=== PATIENT | female | born 1965 | race Caucasian/White ===

== ENCOUNTER 2019-10-01 09:18 | Outpatient (NON) | payer OTHER, SELFPAY ==
[2019-10-02 14:31] LABS: SARS-CoV-2 RNA PCR Negative
== END 2019-10-01 09:19 ==
PROVIDERS: PCP Family Medicine; Visit Provider Nurse Practitioner
DX: R68.89 Other general symptoms and signs (principal); Z20.828 Contact with and (suspected) exposure to other viral communicable diseases
CPT/HCPCS: 87635; C9803; U0003

== ENCOUNTER → 2021-05-21 09:46 | Outpatient (CLI) | payer OTHER, SELFPAY ==
[2021-05-21 11:57] LABS: Influenza Control Positive
[2021-05-26 22:13] LABS: SARS-CoV-2 RNA PCR Negative
== END ==
PROVIDERS: PCP Family Medicine; Visit Provider Family Medicine
DX: J06.9 Acute upper respiratory infection, unspecified (principal); Z20.822 Contact with and (suspected) exposure to COVID-19
CPT/HCPCS: 87804; C9803; U0003; U0005

== ENCOUNTER 2021-06-27 21:39 | Emergency (ER) | payer OTHER, SELFPAY ==
--- NOTE | ~2021-06-27 | XR_ITS ---
EXAMINATION: XR chest 1V portable INDICATION: Shortness of breath and cough, COVID 19 positive TECHNIQUE: Portable AP chest at 2218 hours COMPARISON: 06/14/2019 FINDINGS: There are minimal patchy airspace opacities throughout the lungs. No pleural effusion or pn eumothorax is identified. The cardiomediastinal silhouette is normal. IMPRESSION: 1. Patchy airspace opacities throughout the lungs, consistent with COVID 19 pneumonia. Reviewed, dictated and finalized at location F. OGRAMMETRIC TECHNICIAN IMPRESSION: 1. Patchy airspace opacities throughout the lungs, consistent with COVID 19 pne umonia.
--- NOTE | ~2021-06-27 | CT_ITS ---
EXAMINATION: CTA chest PE protocol DATE: 06/27/2021 23:22 INDICATION: Dyspnea. Covid-positive. Hypoxemia. TECHNIQUE: Computed tomography angiography (CTA) of the chest was performed with 100 mL Omnipaque-350 intravenous contrast timed to evaluate the pulmonary arteries. Coronal maximum intensity projection 3D-reconstructions were created by the technologist. Automated exposure control and iterative reconst ruction technique were employed. Exam dose: 959.78 mGy-cm total exam DLP. COMPARISON: 06/27/2021 portable AP chest FINDINGS: There is diagnostic contrast enhancement of the pulmonary arteries and no evidence of pulmo nary embolism. No thoracic aortic aneurysm or dissection. No hilar or mediastinal mass lesion or lymphadenopathy. Normal heart size. No pericardial or pleural effusion. There are scattered bilateral patchy primarily peripheral pulmonary groundglass infiltrates involving all lobes, right greater than left, most likely due to bilateral Covid pneumonia. Diffuse hepatic steatosis. Small sliding hiatal hernia. Diffuse idiopathic skeletal hyperostosis of the thoracic spine. No suspicious osteolytic or osteoblas tic lesions are noted. IMPRESSION: No evidence of pulmonary embolism Scattered patchy bilateral pulmonary groundglass infiltrates, right greater than left, likely due to Covid pneumonia Reviewed, dictated and finalized at Location A. Reviewed, dictated and finalized at location A. ONENT ASSEMBLER SUPERVISOR IMPRESSION: No evidence of pulmonary embolism Scattered patchy bilateral pulmonary groundglass infiltrates, right greater sarah n left, likely due to Covid pneumonia
[2021-06-27 21:48] VITALS: BP 176/82; PULSE 90; RESP 18; TEMP 37.7; O2SAT 96
--- NOTE | 2021-06-27 22:10 | ECG_ITS ---
Measurements Intervals [place] Rate: 88 P: 38 LA: 157 QRS: -10 QRSD: 90 T: 46 QT: 376 QTc: 456 Interpretive Statements SINUS RHYTHM CONSIDER INFERIOR INFARCT, AGE INDETERMINATE NONSPECIFIC ST & T-WAVE ABNORMALITY- HIGH LATERAL LEADS BASELINE ARTIFACT- I, II, III, AVR, AVL ABNORMAL ECG Electronically Signed On 06-28-2021 7:08:33 SITE FOREMAN by Alton Billingsley D.O.
--- NOTE | 2021-06-27 22:33 | ED.GENADULT ---
HPI - General Adult General Chief complaint: Shortness of Breath/Dyspnea Stated complaint: covid positive Time Seen by Provider: 06/27/21 22:14 Source: RN notes reviewed History of Present Illness HPI narrative: Patient presents emergency room from home for shortness of breath. Patient states she had a positive COVID test on June 25 with symptoms beginning June 22. She states she just received her first COVID vaccination on the . Patient states that she has had a cough this been nonproductive as well as low-grade fever states her last Tylenol was at approximately 2 PM today patient also states that she has been having nausea and vomiting she denies any chest pain abdominal pain or diarrhea denies any other symptoms at this time states that she had at home pulse ox was reading 82 to 85% today and came in for further evaluation Related Data Home Medications Medication Instructions Recorded Confirmed albuterol sulfate 90 mcg/actuation 2 puff INHALATION Q4-6H PRN gm 06/08/19 05/21/21 aerosol inhaler cholecalciferol (vitamin D3) 25 1,000 unit PO DAILY 06/08/19 05/21/21 mcg (1,000 unit) capsule omega-3 fatty acids 1,000 mg See Rx Instructions PO DAILY 06/08/19 05/21/21 capsule aspirin 81 mg tablet,delayed 81 mg PO DAILY 11/26/19 05/21/21 release escitalopram oxalate 20 mg tablet 20 mg PO DAILY tablet 05/21/21 05/21/21 Allergies Allergy/AdvReac Type Severity Reaction Status Date / Time gemfibrozil Allergy Mild feels Verified 06/27/21 21:50 inchoherant NSAIDS (Non-Steroidal AdvReac Mild contraindicated Verified 06/27/21 21:50 Anti-Inflamma r/t severe GERD Review of Systems Review of Systems: Gen.: Reports fever ENT: Denies congestion Respiratory: Reports shortness of breath and cough CV: Denies chest pain or palpitations GI: Denies abdominal pain reports nausea and vomiting Musculoskeletal: Denies back pain or muscle pain Neuro: Denies numbness, tingling, weakness or focal weakness Skin: Denies rash Except as documented, all other systems reviewed and negative PMFSH Past Medical History Medical History Benign essential HTN Chronic low back pain Depression GERD without esophagitis Hyperlipidemia Lower back pain Recurrent sinusitis (~12/2018) Strain of left Achilles tendon, sequela (~11/2018) Trigger middle finger of left hand Type 2 diabetes mellitus (~11/2019) Vitamin D deficiency Surgical History Surgical History Hx of lumbar discectomy (~1992) Family History Family History Mother Diabetes mellitus Family history of chronic obstructive pulmonary disease Father Family history of chronic obstructive pulmonary disease Other Family history of arthritis Family history of emphysema Family history of mental disorder Social History Social History Social History: . Works from home for [employer] in [place]. Smoking status: Never smoker Smoking end date: 06/06/92 Alcohol intake: current Gender identity (if verbalized by the patient): Female Exam Narrative: APPEARANCE: No acute distress, nontoxic, resting in bed EYES: EOMI HEENT: Normocephalic, atraumatic, OMM RESPIRATORY: No respiratory distress Clear to auscultation bilaterally with no rhonchi wheezing or rales. CARDIOVASCULAR: Regular rate and rhythm without murmurs rubs or gallops. ABDOMINAL: Soft, nontender, nondistended, no rebound or guarding MUSCULOSKELETAl: Moves all extremities. No clubbing, cyanosis or edema. NEURO: Awake and alert. Following commands, speech normal, no focal deficits SKIN:: Warm, dry. No rashes lesions or abrasions PSYCHIATRIC: Normal affect/mood, Course Course Emergency Course: Patient with walking pulse ox in ED oxygen saturations stay
[2021-06-27] MEDS: SODIUM CHLORIDE 0.9% IV 1,000 ML 999 ML IV CONT (22:38)
[2021-06-27] MEDS: ONDANSETRON INJ 4 MG/2 ML VIAL IV PUSH (22:38)
[2021-06-27 22:39] LABS: Basophils Percent Auto 0.4 % (0.2-1.2); Eosinophils Percent Auto 0.2 % (0-4.4); Hematocrit 44.2 % (37.0-47.0); Hemoglobin 14.8 g/dL (12.0-15.0); Immature Granulocyte Absolute 0.02 K/mm3 (0.00-0.031); Immature Granulocyte Percent A 0.4 % (0-0.5); Lymphocytes Absolute Auto 1.22 K/mm3 (0.9-3.2); Mean Corpuscular HGB Conc 33.5 g/dl (32-36); Mean Corpuscular Hemoglobin 29.2 pg (26-34); Mean Corpuscular Volume 87.2 fl (80-100); Mean Platelet Volume 10.3 fl (7.4-10.4); Monocytes Absolute Auto 0.4 K/mm3 (0.1-0.6); Monocytes Percent Auto 7.4 % (2.6-8.5); Neutrophils Absolute Auto 3.1 K/mm3 (1.3-6.7); Neutrophils Percent Auto 65.6 % (45.5-73.1); Platelet Count Result 159 k/mm3 (150-375); Red Blood Count 5.07 M/mm3 (4.2-5.4); Red Cell Distribution Width 13.9 % (11.5-14.5); White Blood Count 4.7 K/mm3 (4.5-10.0)
[2021-06-27 22:49] LABS: Partial Thromboplastin Time 27.9 SECONDS (22.3-36.8)
[2021-06-27 22:51] LABS: D Dimer 0.35 ug/mL (<0.48)
[2021-06-27 22:57] LABS: Alanine Aminotransferase 85 U/L (4-35); Albumin Level 3.9 g/dL (3.5-5.1); Alkaline Phosphatase 130 U/L (38-126); Anion Gap 11 mmol/L (8-16); Aspartate Amino Transferase 83 U/L (14-36); Bilirubin,Total 0.6 mg/dL (0.2-1.3); Blood Urea Nitrogen 9 mg/dL (7-17); CRP 2.2 mg/dL (<1.0); Calcium 8.4 mg/dL (8.4-10.2); Carbon Dioxide 23 mmol/L (22-30); Chloride 99 mmol/L (98-107); Estimated CRCL calculation 139 ml/min; Estimated Glomerular Filt Rate > 60; Glucose 342 mg/dL (65-110); Lactate Dehydrogenase 769 U/L (313-618); Potassium 4.5 mmol/L (3.4-5.0); Sodium 133 mmol/L (137-145)
[2021-06-27 22:59] LABS: Prothrombin Time 13.4 Seconds (11.1-14.7)
[2021-06-27] MEDS: ALBUTEROL SULFATE (*SP) AEROSOL 1 PUFF 2 PUFF INHALATION (23:00)
--- NOTE | 2021-06-27 23:53 | PC.NURSE ---
Patient did ambulate in room with pulse ox, went from 94% to91%. Patient tolerated well. ERP notified.
[2021-06-27 23:54] LABS: Glucose Point of Care 318 mg/dl (65-105)
[2021-06-28 00:18] VITALS: PULSE 99; RESP 20; TEMP 36.3; O2SAT 94
== END 2021-06-28 00:12 | disposition home or self-care (01) ==
PROVIDERS: Emergency Provider Emergency Medicine; PCP Family Medicine
DX: U07.1 COVID-19 (principal); I10 Essential (primary) hypertension; E78.5 Hyperlipidemia, unspecified; E11.9 Type 2 diabetes mellitus without complications; E55.9 Vitamin D deficiency, unspecified; F32.A Depression, unspecified; Z87.891 Personal history of nicotine dependence; Z79.82 Long term (current) use of aspirin; Z79.84 Long term (current) use of oral hypoglycemic drugs; R94.31 Abnormal electrocardiogram [ECG] [EKG]; R91.8 Other nonspecific abnormal finding of lung field
CPT/HCPCS: 36415; 71045; 71275; 80053; 82948; 83615; 85025; 85380; 85610; 85730; 86140; 93005; 96365; 96375; 99284; A9270; J0131; J2405; J7030; Q9967

== ENCOUNTER 2021-11-05 17:45 | Outpatient (CLI) | payer OTHER, SELFPAY ==
--- NOTE | ~2021-11-05 | MM_ITS ---
EXAMINATION: MM screening rena BI w paulino HISTORY: Screening mammogram TECHNIQUE: Craniocaudal and mediolateral oblique 3-D tomosynthesis images were obtained and synthetic 2-D images were generated. CAD analysis was submitted and interpreted. COMPARISON: 09/15/2018 bilateral screening mammogram diagnostic left mammogram 09/23/2015 bilateral screening mammogram BREAST PARENCHYMAL COMPOSITION: The breasts are almost entirely fatty. FINDINGS: There is no evidence of suspicious mass, calcification, or architectural distortion to sugg est malignancy in either breast. There has been no suspicious interval change. IMPRESSION: 1. No mammographic evidence of malignancy. 2. Recommend routine screening mammography in one year. BI-RADS Category 1: Negative Reviewed, dictated and finalized at location A.
== END 2021-11-05 17:46 | disposition home or self-care (01) ==
LOC: ANHIMG 17:48
PROVIDERS: PCP Family Medicine; Visit Provider Nurse Practitioner Family
DX: Z12.31 Encounter for screening mammogram for malignant neoplasm of breast (principal)
CPT/HCPCS: 77063; 77067

== ENCOUNTER 2021-12-11 07:24 | Outpatient (CLI) | payer OTHER, SELFPAY ==
--- NOTE | 2022-01-04 12:02 | WPDSLEEPSTUD ---
Sleep Study Date of Study: 12/11/21 Ordering Provider: Rasheeda Davidson NP Interpreting Physician: Larissa Singh DO Sleep Study Type: Split Polysomnogram Height: 1.57 m Weight: 127.006 kg Body Mass Index: 51.2 Neck Circumference (inches): 16.5 [place]: 10 Reason for Sleep Study Previously diagnosed with sleep apnea. Her CPAP machine broke 4-5 years ago and has been using her 's machine. Sleep History The patient is a 56-year-old female with hypertension, type 2 diabetes, hyperlipidemia, GERD, depression, SOPHIE on CPAP and history of tobacco abuse that had a sleep study ordered by her primary care to get a new CPAP machine. The patient rarely awakens from sleep short of breath. she occasionally awakens at night with heartburn, belching or cough. She frequently snores and is constantly loud enough that others complain. She occasionally has trouble sleeping when she has a cold. She rarely wakes up gasping for air throughout the night. She occasionally has breathing problems at night observed by herself or others. She frequently sweats excessively at night. She rarely has heart palpitations or irregular heartbeats during the night. She occasionally falls asleep during the day but never while driving. She denies sleep paralysis and cataplexy. She rarely has trouble at school or work due to sleepiness. She occasionally experiences vivid dreamlike scenes upon awakening or falling asleep. She rarely has nightmares. She frequently remembers her dreams. She frequently has thoughts racing through her mind. She occasionally feels sad, depressed and anxious. She frequently has muscular tension. She frequently notices parts of her body jerk. She rarely kicks during the night. She occasionally has crawling and aching feelings in her legs and occasionally has leg pain during the night. She rarely grinds her teeth during sleep and rarely awakens with morning jaw pain. She is occasionally bothered by pain during the day and occasionally awakened by pain during the night. She occasionally wakes up feeling stiff in the morning. She occasionally wakes up with sore achy muscles. She rarely wakes up with pain in the neck, spine and other joints. She goes to bed at 11:00 p.m. on weekdays and at midnight on the weekends. It takes her 30-60 minutes to fall asleep. She wakes up 3 times throughout the night for unknown reasons. When she awakens she will check the clock and fall back asleep within a few minutes. She wakes up at 6:30 a.m. on weekdays and 9:30 a.m. on the weekends. She typically gets 5-7 hours of sleep per night. She will stay in bed for 5 minutes after waking up in the morning. She currently lives with her . She does not consume any caffeinated beverages within 2 hours of bedtime. She does not engage in physical exercise before bedtime. She will read and watch television before falling asleep. She will take naps in the afternoon or the evening but they are not refreshing. She drinks 16 oz of caffeinated beverage per day. She drinks 2 alcoholic beverages per day. She quit smoking cigarettes 30 years ago. She denies recreational drug use. [facility] Past Medical History Medical History Benign essential HTN Chronic low back pain Depression GERD without esophagitis Hyperlipidemia Recurrent sinusitis (~12/2018) Sleep apnea with use of continuous positive airway pressure (CPAP) Strain of left Achilles tendon, sequela (~11/2018) Trigger middle finger of left hand Type 2 diabetes mellitus (~11/2019) Vitamin D deficiency Surgical History Surgical History Hx of lumbar discectomy (~1992) Family History Family History Mother Diabetes mellitus Family history of chronic obstructive pulmonary disease Father Family history of chronic obstructive p
[2022-01-04 22:08] VITALS: BMI 51.2
== END 2021-12-12 07:10 | disposition home or self-care (01) ==
PROVIDERS: Visit Provider Nurse Practitioner Family
DX: G47.33 Obstructive sleep apnea (adult) (pediatric) (principal)
CPT/HCPCS: 95811

== ENCOUNTER 2022-08-03 16:00 | Outpatient (RCR) | payer OTHER, SELFPAY ==
[2022-06-24 09:43] VITALS: BMI 52.0
[2022-06-24 10:22] VITALS: BMI 52.0
== END 2022-09-13 10:35 | disposition home or self-care (01) ==
LOC: ANHDMC 16:00
PROVIDERS: PCP Family Medicine; Visit Provider Internal Medicine Endocrinology, Diabetes & Metabolism
DX: E11.9 Type 2 diabetes mellitus without complications (principal); Z71.3 Dietary counseling and surveillance; Z71.89 Other specified counseling
CPT/HCPCS: 97802; G0108

== ENCOUNTER 2022-08-23 09:15 | Outpatient (CLI) | payer OTHER, SELFPAY ==
[2022-08-23 17:27] LABS: Alanine Aminotransferase 34 U/L (6-35); Alkaline Phosphatase 103 U/L (38-126); Anion Gap 8 mmol/L (8-16); Aspartate Amino Transferase 49 U/L (14-36); Bilirubin,Total 0.6 mg/dL (0.2-1.3); Blood Urea Nitrogen 20 mg/dL (7-17); Calcium 8.5 mg/dL (8.4-10.2); Carbon Dioxide 28 mmol/L (22-30); Chloride 100 mmol/L (98-107); Cholesterol 139 mg/dL (0-200); Estimated Glomerular Filt Rate > 60; Glucose 264 mg/dL (65-110); Potassium 4.4 mmol/L (3.4-5.0); Sodium 136 mmol/L (137-145); Triglycerides 574 mg/dL (<150)
[2022-08-23 17:28] LABS: LDL Cholesterol Direct 37 mg/dL
[2022-08-23 17:29] LABS: HDL Direct 32 mg/dL
[2022-08-23 17:32] LABS: Creatinine Urine 109.9 mg/dL
[2022-08-23 17:38] LABS: MALB Creatinine Ratio 40.7 mg/g (0-30); Microalbumin Urine Random 44.7 mg/L (0-16.7)
== END 2022-08-23 09:16 | disposition home or self-care (01) ==
LOC: ANHWCLAB 09:16
PROVIDERS: PCP Family Medicine; Visit Provider Internal Medicine Endocrinology, Diabetes & Metabolism
DX: E11.65 Type 2 diabetes mellitus with hyperglycemia (principal); E78.1 Pure hyperglyceridemia; E78.5 Hyperlipidemia, unspecified; Z71.3 Dietary counseling and surveillance; Z79.4 Long term (current) use of insulin
CPT/HCPCS: 36415; 80053; 80061; 82043; 82607; 84443

== ENCOUNTER 2023-05-19 13:54 | Emergency (ER) | payer OTHER, SELFPAY ==
--- NOTE | ~2023-05-19 | XR_ITS ---
EXAMINATION: XR chest 2V DATE: 05/19/2023 14:23 INDICATION: Cough TECHNIQUE: Frontal and lateral views of the chest are obtained COMPARISON: 06/27/2021 FINDINGS: There are patchy airspace opacities throughout the lungs. No pleural effusion or pneumothor ax. The cardiomediastinal silhouette is normal. There is moderate thoracic spondylosis. IMPRESSION: 1. Patchy bilateral airspace opacities, consistent with pneumonia versus atelectasis versus pulmonary edema. Reviewed, dictated and finalized at location L. TED WINDER IMPRESSION: 1. Patchy bilateral airspace opacities, consistent with pneumonia versus atelec tasis versus pulmonary edema.
[2023-05-19 14:05] VITALS: BP 142/63; PULSE 87; RESP 12; TEMP 36.8; O2SAT 98
--- NOTE | 2023-05-19 14:19 | ED.URI ---
HPI - URI/Sore Throat General Chief Complaint: Upper Respiratory Infection Stated Complaint: Cough Time Seen by Provider: 05/19/23 14:10 Source: patient Mode of arrival: ambulatory Limitations: no limitations History of Present Illness HPI Narrative: Opal is a 57-year-old female patient presenting to the clinic today with complaints of a cough and shortness of breath. She reports she has had the symptoms for 2 weeks. Is bringing up some green and yellow phlegm. Is having to use her albuterol inhaler more often and this is not seem to be helping. Denies any known fever or chills. Does have history of pneumonia in the past. MD elicited complaint: cough, nasal congestion and other (Shortness of breath) Related Data Home Medications Medication Instructions Recorded Confirmed aspirin 81 mg tablet,delayed 81 mg PO DAILY 11/26/19 01/21/23 release (Adult Low Dose Aspirin) cholecalciferol (vitamin D3) 25 2,000 unit PO DAILY 05/17/22 01/21/23 mcg (1,000 unit) capsule mecobalamin (vitamin B12) 5,000 mcg PO 10/21/22 01/21/23 mcg disintegrating tablet Allergies Allergy/AdvReac Type Severity Reaction Status Date / Time gemfibrozil Allergy Mild feels Verified 05/19/23 14:04 inchoherant NSAIDS (Non-Steroidal AdvReac Mild contraindicated Verified 05/19/23 14:04 Anti-Inflamma r/t severe GERD Review of Systems Review of Systems: Pertinent positives per HPI. Patient denies any fever, chills, rash, headache, visual changes, dizziness, chest pain, palpitations, nausea, vomiting, diarrhea, constipation, abdominal pain, or any urinary issues. [facility] Past Medical History Medical History Benign essential HTN Bilateral carpal tunnel syndrome Body mass index (BMI) greater than 40 (10/28/17) Chondromalacia of left patella Chronic GERD Chronic low back pain Depression Depressive disorder, not elsewhere classified Diverticulosis of intestine Dysmetabolic syndrome X Fatty liver GERD without esophagitis Hyperlipidemia Obstructive sleep apnea (adult) (pediatric) Paresthesia of both hands Recurrent sinusitis (~12/2018) Restless legs syndrome Schizoaffective disorder, unspecified Sleep apnea with use of continuous positive airway pressure (CPAP) Strain of left Achilles tendon, sequela (~11/2018) Trigger middle finger of left hand Type 2 diabetes mellitus (~11/2019) Vitamin D deficiency Surgical History Surgical History Hx of lumbar discectomy (~1992) Family History Family History Mother Diabetes mellitus Family history of chronic obstructive pulmonary disease Father Family history of chronic obstructive pulmonary disease Other Family history of arthritis Family history of emphysema Family history of mental disorder Social History Social History Social History: . Works from home for [employer] in [place]. Caffeine-diet soda Smoking packs per day: 1 Smoking cigarettes per day: 20.0 Years smoked: 14 Smoking pack-years: 14.00 Smoking status: Former smoker Tobacco type: cigarettes Smoking end date: 06/06/92 Alcohol intake: current Drinks per week: 3 Substance use: former Substance use type: marijuana Last use: high school Lack of Transportation: No Lack of Food: Never True Current Housing: I Have Housing Concerned About Future Housing: No Difficulty Paying Gas/Electric Bills: No Difficulty Paying for Meds: No Currently Unemployed: No Education: Associate Degree Difficulty w/ Childcare or Family Care: No Living arrangements: with family Gender identity (if verbalized by the patient): Female Spiritual care concerns: No Agree to blood products: Yes Comments At the time of my signature, I reviewed and ag
== END 2023-05-19 14:48 | disposition home or self-care (01) ==
PROVIDERS: Emergency Provider Nurse Practitioner Family; PCP Family Medicine
DX: J18.9 Pneumonia, unspecified organism (principal); I10 Essential (primary) hypertension; E78.5 Hyperlipidemia, unspecified; E11.9 Type 2 diabetes mellitus without complications; Z87.891 Personal history of nicotine dependence
CPT/HCPCS: 71046; 99213; G0463

== ENCOUNTER 2023-06-14 09:05 | Outpatient (CLI) | payer OTHER, SELFPAY ==
--- NOTE | ~2023-06-14 | XR_ITS ---
Left Shoulder Technique: AP and axillary views were obtained. Clinical History: Pain Findings: No fracture or dislocation is seen. Osseous alignment is anatomic. There is mild AC joint d egenerative change. Glenohumeral joint intact. Soft tissues are unremarkable. Impression: Mild AC joint degenerative change. Reviewed, dictated and finalized at location . NOSE THROAT PHYSICIAN Impression: Mild AC joint degenerative change.
== END 2023-06-14 09:06 ==
PROVIDERS: PCP Family Medicine; Visit Provider Nurse Practitioner Family
DX: M19.012 Primary osteoarthritis, left shoulder (principal)
CPT/HCPCS: 73030

== ENCOUNTER 2023-08-05 00:54 | Day surgery (SDC) | payer OTHER, SELFPAY ==
[2023-07-22 08:21] VITALS: BMI 54.8
--- NOTE | 2023-08-03 15:31 | SUR.PREOP ---
Left message on voicemail to confirm colonoscopy on 08/05/23.
[2023-08-05 09:11] VITALS: BP 131/68; PULSE 85; RESP 20; TEMP 36.6; O2SAT 98
[2023-08-05] MEDS: LACTATED RINGERS 1,000 ML 150 ML IV CONT (09:22)
--- NOTE | 2023-08-05 09:27 | WPDANESEPPF ---
Anes - Initial Pre Proc Eval Procedure: Operation Date: 08/05/23 10:30 Proposed Procedures p Colonoscopy - Rell Patel MD Date/Time: 08/05/23 09:27 Surgeon: Rell Patel MD Pre Op Diagnosis: Hemorrhage of anus and rectum, constipation Patient Data Age: 57 Gender: F Height: 1.57 m Weight: 135.3 kg Last Vital Signs Temp 36.6 C 08/05/23 09:11 Pulse 85 08/05/23 09:11 Resp 20 08/05/23 09:11 BP 131/68 08/05/23 09:11 Pulse Ox 98 08/05/23 09:11 O2 Del Method Room Air 08/05/23 09:11 Allergies Allergy/AdvReac Type Severity Reaction Status Date / Time gemfibrozil Allergy Mild feels Verified 08/05/23 09:10 inchoherant NSAIDS (Non-Steroidal AdvReac Mild contraindicated Verified 08/05/23 09:10 Anti-Inflamma r/t severe GERD Home Medications Medication Instructions Recorded Confirmed Type aspirin 81 mg tablet,delayed 81 mg PO DAILY 11/26/19 07/22/23 History release (Adult Low Dose Aspirin) albuterol sulfate 90 mcg/actuation 2 puff inhalation QID PRN 06/27/21 07/22/23 Rx aerosol inhaler shortness of breath or wheezing #6.7 grams blood-glucose meter (Blood Glucose #1 ea 10/27/21 06/23/23 Rx Monitoring kit) cholecalciferol (vitamin D3) 25 2,000 unit PO DAILY 05/17/22 07/22/23 History mcg (1,000 unit) capsule glucagon 3 mg/actuation nasal 3 mg intranasal ONCE PRN 05/17/22 07/22/23 Rx spray (Baqsimi) hypoglycemia #1 ea glucose 4 gram chewable tablet 16 g PO Q15M PRN hypoglycemia #60 05/17/22 07/22/23 Rx (Dex4 Glucose) tabs blood sugar diagnostic (Blood #50 ea 06/29/22 06/23/23 Rx Glucose Test strips) mecobalamin (vitamin B12) 5,000 5,000 mcg PO DAILY 10/21/22 07/22/23 History mcg disintegrating tablet blood-glucose meter,continuous #1 ea 12/21/22 06/23/23 Rx (Dexcom G7 Rail Splitter) dapagliflozin propanediol 10 mg 10 mg PO QAM 90 days #90 tabs 03/03/23 07/22/23 Rx tablet (Farxiga) fenofibrate 160 mg tablet 160 mg PO DAILY #90 tabs 03/03/23 07/22/23 Rx icosapent ethyl 1 gram capsule 2 g PO BID 90 days #360 caps 03/03/23 07/22/23 Rx (Vascepa) lisinopril 40 mg tablet 40 mg PO DAILY #90 tabs 03/03/23 07/22/23 Rx pen needle, diabetic 32 gauge x #400 ea 03/03/23 06/23/23 Rx /32 (BD Ultra-Fine Veronica Pen Needle) rosuvastatin 40 mg tablet 40 mg PO DAILY 90 days #90 tabs 03/03/23 07/22/23 Rx insulin aspart U-100 100 unit/mL 25 unit (0.25 mL) subcut TIDWMEAL 04/14/23 07/22/23 Rx (3 mL) subcutaneous pen (Novolog #120 mL FlexPen U-100 Insulin aspart) bupropion HCl 300 mg 24 hr tablet, 300 mg PO .QD #30 tabs 04/26/23 07/22/23 Rx extended release escitalopram oxalate 20 mg tablet 20 mg PO DAILY #90 tabs 06/07/23 07/22/23 Rx triamcinolone acetonide 0.5 % 1 applic topical TID #15 grams 06/14/23 07/22/23 Rx topical cream blood-glucose sensor (Dexcom G7 #9 ea 06/28/23 Rx Sensor device) insulin degludec 200 unit/mL (3 80 unit (0.4 mL) subcut QHS #36 mL 06/28/23 07/22/23 Rx mL) subcutaneous pen (Tresiba FlexTouch U-200 insulin) meloxicam 15 mg tablet 15 mg PO HS 07/22/23 07/22/23 History nystatin 100,000 unit/gram topical 1 applic topical TID PRN yeast inf. 07/22/23 07/22/23 History cream omeprazole 20 mg tablet,delayed 20 mg PO EVERY OTHER DAY 07/22/23 07/22/23 History release Patient hx anesthesia problems: none Family hx anesthesia problems: none Results Review: All pre-operative results and documents have been reviewed as part of the pre-operative evaluation. [facility] Past Medical History Medical History Benign essential HTN Bilateral carpal tunnel syndrome Body mass index (BMI) greater than 40 (10/28/17) Chondromalacia of left patella Chronic GERD Chronic low back pain Constipation Depression Depressive disorder, not elsewhere classified Diverticulosis of intestine Dysmetabolic syndrome X Fatty liver GERD without esopha
--- NOTE | 2023-08-05 09:29 | PM.HPGS ---
History of Present Illness History of Present Illness Consent: Risks, benefits, and alternatives have been discussed and questions answered. Patient agrees to proceed with procedure. Chief complaint: Hemorrhage of anus and rectum, constipation Narrative: Opal Arshad is a 57 year old female with episode of rectal bleeding, last colonoscopy 2017 Review of Systems Constitutional: Constitutional: Denies headache(s) and Denies weakness Eyes: Eyes: Denies blurry vision ENT: Reports Normal hearing present, Denies headache(s) and Denies neck pain Cardiovascular: Cardiovascular: Denies chest pain and Denies dyspnea Respiratory: Respiratory: Denies dyspnea Gastrointestinal: Gastrointestinal: Reports no additional gastrointestinal complaints Genitourinary: Genitourinary: Denies dysuria Musculoskeletal: Musculoskeletal: Denies neck pain Integumentary/Breasts: Skin/Breast: Denies dry skin Neurologic: Reports Normal hearing present, Denies headache(s) and Denies weakness Psychiatric: Psychiatric: Denies anxiety Endocrine: Endocrine: Denies change in body appearance Hematologic/Lymphatic: Hematologic/Lymphatic: Denies easy bleeding Allergic/Immunologic: Allergic/Immunologic: Denies urticaria PMFSH Past Medical History Medical History Benign essential HTN Bilateral carpal tunnel syndrome Body mass index (BMI) greater than 40 (10/28/17) Chondromalacia of left patella Chronic GERD Chronic low back pain Constipation Depression Depressive disorder, not elsewhere classified Diverticulosis of intestine Dysmetabolic syndrome X Fatty liver GERD without esophagitis Hyperlipidemia Morbid obesity Obstructive sleep apnea (adult) (pediatric) Paresthesia of both hands Recurrent sinusitis (~12/2018) Restless legs syndrome Schizoaffective disorder, unspecified Sleep apnea with use of continuous positive airway pressure (CPAP) Strain of left Achilles tendon, sequela (~11/2018) Trigger middle finger of left hand Type 2 diabetes mellitus (~11/2019) Vitamin D deficiency Surgical History Surgical History Hx of lumbar discectomy (~1992) Family History Family History Mother Diabetes mellitus Family history of chronic obstructive pulmonary disease Father Family history of chronic obstructive pulmonary disease Other Family history of arthritis Family history of emphysema Family history of mental disorder Social History Social History Social History: . Works from home for [employer] in [place]. Caffeine-diet soda Smoking packs per day: 1 Smoking cigarettes per day: 20.0 Years smoked: 12 Smoking pack-years: 12.00 Smoking status: Former smoker Tobacco type: cigarettes Smoking end date: 06/06/92 Alcohol intake: current Drinks per week: 12 Alcohol use details: BEER Substance use: never Substance use type: does not use Last use: high school Lack of Transportation: No Lack of Food: Never True Current Housing: I Have Housing Concerned About Future Housing: No Difficulty Paying Gas/Electric Bills: No Difficulty Paying for Meds: No Currently Unemployed: No Education: Associate Degree Difficulty w/ Childcare or Family Care: No Living arrangements: with family Gender identity (if verbalized by the patient): Female Spiritual care concerns: No Agree to blood products: Yes Meds Home Medications and Allergies Home Medications Medication Instructions Recorded Confirmed Type aspirin 81 mg tablet,delayed 81 mg PO DAILY 11/26/19 07/22/23 History release (Adult Low Dose Aspirin) albuterol sulfate 90 mcg/actuation 2 puff inhalation QID PRN 06/27/21 07/22/23 Rx aerosol inhaler shortness of breath or wheezing #6.7 grams blood-glucose me
--- NOTE | 2023-08-05 09:30 | SUR.PREOP ---
Okay to skip preop blood glucose per verbal order from Dr. Verdin, will check blood glucose in postop.
[2023-08-05 09:45] VITALS: BP 115/97; PULSE 94; RESP 20; O2SAT 94
[2023-08-05 09:55] VITALS: BP 122/79; PULSE 80; RESP 18; O2SAT 96
[2023-08-05 10:01] LABS: Glucose Point of Care 163 mg/dl (65-105)
[2023-08-05 10:05] VITALS: BP 111/72; PULSE 86; RESP 17; O2SAT 97
== END 2023-08-05 10:20 | disposition home or self-care (01) ==
PROVIDERS: PCP Family Medicine; Visit Provider Internal Medicine Gastroenterology
PROC: 0DJD8ZZ Inspection of Lower Intestinal Tract, Via Natural or Artificial Opening Endoscopic (ICD-10-PCS; CPT 45378; principal; 2023-08-05 10:30)
DX: K92.1 Melena (principal); D12.0 Benign neoplasm of cecum; K64.8 Other hemorrhoids; K57.30 Diverticulosis of large intestine without perforation or abscess without bleeding; I10 Essential (primary) hypertension; E78.5 Hyperlipidemia, unspecified; E11.9 Type 2 diabetes mellitus without complications; E55.9 Vitamin D deficiency, unspecified; K21.9 Gastro-esophageal reflux disease without esophagitis; F32.A Depression, unspecified; G47.33 Obstructive sleep apnea (adult) (pediatric); G25.81 Restless legs syndrome; G56.03 Carpal tunnel syndrome, bilateral upper limbs; G89.29 Other chronic pain; M54.50 Low back pain, unspecified; E88.810 Metabolic syndrome; F25.9 Schizoaffective disorder, unspecified; E66.01 Morbid (severe) obesity due to excess calories; Z68.43 Body mass index [BMI] 50.0-59.9, adult; Z79.51 Long term (current) use of inhaled steroids; Z79.82 Long term (current) use of aspirin; Z79.4 Long term (current) use of insulin; Z79.85 Long-term (current) use of injectable non-insulin antidiabetic drugs; Z99.89 Dependence on other enabling machines and devices; Z98.1 Arthrodesis status; Z87.891 Personal history of nicotine dependence
CPT/HCPCS: 45385; 82948; 88305; J2704; J7120

== ENCOUNTER 2024-02-21 09:10 | Outpatient (CLI) | payer OTHER, SELFPAY ==
--- NOTE | ~2024-02-21 | US_ITS ---
EXAMINATION: US arterial ankle brachial ind DATE: 02/21/2024 09:50 INDICATION: Peripheral vascular disease TECHNIQUE: Segmental pressures and plethysmographic and Doppler waveforms of the brachial and lower e xtremity arteries were obtained. COMPARISON: None. FINDINGS: Right and left brachial artery pressures of 146 mm Hg and 139 mm Hg, respectively, are concordant (no rmal difference <= 30 mmHg). The right ankle-brachial index (STEFANO) is 1.01 (normal >= 0.9-1.0). The right great toe-brachial index (TBI) is 0.48 (normal >= 0.65). Arterial Doppler waveforms are biphasic with brisk systolic upstrokes at both right posterior tibial and dorsalis pedis arteries. The left STEFANO is 0.92. The left TBI is 0.61. Arterial Doppler waveforms are biphasic with brisk systol ic upstrokes at both left posterior tibial and dorsalis pedis arteries. IMPRESSION: 1. 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 Reviewed, dictated and finalized at location B. IMPRESSION: 1. Arterial occlusive disease to the bilateral lower extremities with borderlin e bilateral ABIs and mildly decreased bilateral TBIs.
== END 2024-02-21 09:11 | disposition home or self-care (01) ==
PROVIDERS: PCP Family Medicine; Visit Provider Nurse Practitioner Family
DX: I73.9 Peripheral vascular disease, unspecified (principal)
CPT/HCPCS: 93922

== ENCOUNTER 2024-08-27 10:27 | Outpatient (CLI) | payer OTHER, SELFPAY ==
--- NOTE | ~2024-08-27 | XR_ITS ---
3 VIEWS LUMBAR SPINE Ordering provider: Rasheeda Davidson NP History: . M54.5 - Low back pain . Comparison: None. FINDINGS: VERTEBRAL BODIES: No visible fracture or subluxation. DISK SPACES: Narrowing of the disc L3-4, L4-L5 and L5-S1. Multilevel facet joint disease. SOFT TISSUES: Normal. IMPRESSION: No acute osseous abnormality lumbar spine. Multilevel degenerative disc disease. Reviewed, dictated and finalized at location A.
== END 2024-08-27 10:28 | disposition home or self-care (01) ==
LOC: GOSHIMG 10:28
PROVIDERS: PCP Nurse Practitioner Family; Visit Provider Nurse Practitioner Family
DX: M51.369 Other intervertebral disc degeneration, lumbar region without mention of lumbar back pain or lower extremity pain (principal); M51.379 Other intervertebral disc degeneration, lumbosacral region without mention of lumbar back pain or lower extremity pain; G89.29 Other chronic pain
CPT/HCPCS: 72100

== ENCOUNTER 2024-10-02 09:17 | Outpatient (CLI) | payer OTHER, SELFPAY ==
--- OUTSIDE RECORDS SUMMARY | 2024-10-02 10:05 | XMS_ITS | Clinical Summary ---
Author Organization [facility] Address [address] [place] [phone] Phone Care Team Providers Care Solid Waste Analyst Name Role Phone Christine Brunner MD Primary Care Provider + Milan Benson DO Unavailable [phone] Cassi Marina APRN, RECOATING MACHINE OPERATOR Unavailable Allergies No known active allergies Medications escitalopram (LEXAPRO) 20 MG Tablet Take 20 mg by mouth daily. Active metFORMIN (GLUCOPHAGE) 500 MG Tablet TK 1 T PO QHS 3 6 Active buPROPion (WELLBUTRIN) 300 MG TABLET SR 24 HR XL tablet TK 1 T PO QD 7 6 Active fish oil-omega-3 fatty acids 1000 MG Capsule Take 1,000 mg by mouth daily. Active baclofen (LIORESAL) 10 MG Tablet Take 10 mg by mouth 3 times daily. Active aspirin EC 81 MG Tablet Delayed Response Take 81 mg by mouth daily. Active polyethylene glycol (MIRALAX) Powder Use entire 255g bottle with 64oz of clear liquid as directed for colonoscopy prep. 255 g 0 6 Active Probiotic Product (PROBIOTIC PO) Take by mouth. Active omeprazole (PRILOSEC) 40 MG CAPSULE DELAYED RELEASE Take 1 Cap by mouth daily. 90 Cap 3 7 Active dicyclomine (BENTYL) 10 MG Capsule Take 1 Cap by mouth 3 times daily. 90 Cap 3 7 Active Family History Medical History Relation Name Comments Heart Disease Maternal Aunt Heart Disease Maternal Grandfather Cervical Cancer Maternal Grandmother Leukemia/Lymphoma Paternal Grandmother Relation Name Status Comments Maternal Aunt Maternal Grandfather Maternal Grandmother Paternal Grandmother Social History Tobacco Use Types Packs/Day Years Used Date Smoking Tobacco: Former Cigarettes 1 14 0 06/06/1977 - 06/06/1991 Smokeless Tobacco: Never Tobacco Cessation:Counseling Given: Yes Alcohol Use Standard Drinks/Week Comments Yes 0 (1 standard drink = 0.6 oz pur e alcohol) socially Comments No Sex and Gender Information Value Date Recorded Sex Assigned at Not on file Legal Sex Female 12:55 PM CDT Gender Identity Not on file Sexual Orientation Not on file Last Filed Vital Signs Vital Sign Reading Time Taken Comments Blood Pressure 124/72 09/23/2016 1:05 PM CDT Pulse 84 09/23/2016 1:05 PM CDT Temperature 36.9 C (98.4 F) 09/23/2016 1:05 PM CDT Respiratory Rate 18 09/23/2016 1:05 PM CDT Oxygen Saturation 97% 09/23/2016 1:05 PM CDT Inhaled Oxygen Concentration - - Weight 117.9 kg (259 lb 14.4 oz) 09/23/2016 1:05 PM CDT Height 157.5 cm (5' 2 ) 09/23/2016 1:05 PM CDT Body Mass Index 47.54 09/23/2016 1:05 PM CDT Plan of Treatment Health Maintenance Due Date Last Done Comments Hepatitis C Virus (HCV) Screening 1965 TdaP Immunization 1965 Hepatitis B Immunization (1 of 3 - 19+ 3-dose series) 1984 Pap Smear 1986 Cervical Cancer Screening (CCS) 08/16/1995 HPV/Cotest 08/16/1995 Cologuard 08/16/2015 Immunochemical Fecal Occult Blood 08/16/2015 Mammogram 08/16/2015 Pneumococcal Immunization (5 0+ years) (1 of 1 - PCV) 08/16/2015 Zoster Immunization (1 of 2) 08/16/2015 Colonoscopy 06/24/2021 06/24/2016 Colorectal Cancer Screening 06/24/2021 Influenza Immunization (#1) 2024 SARS-COV-2 Immunization (2023- season) 2024 Respiratory Syncytial Virus (RSV) Immunization (Adult) (1 - 1-dose 75+ series) 2040 06/24/2016 Meningococcal Immunization (ACWY) Aged Out No longer eligible based on patient's age to complete this topic Pneumococcal Immunization Combined Aged Out No longer eligible based on patient's age to complete this topic Rotavirus Immunization Aged Out No lo nger eligible based on patient's age to complete this topic Procedures Procedure Name Priority Date/Time Associated Diagnosis Comments COLONOSCOPY Routine 06/24/2016 from Last 3 Months or Most Recently Relevant to Health Maintenance Results * COLONOSCOPY (06/24/2016) Uri Bassett MD PROCEDURE/MINOR SURGICAL OR DERABLES Final Result from Last 3 Months or Most Recently Relevant to Health Maintenance Insurance [address] Care Teams Solid Waste Analyst Relationship Specialty Start Date End Date Christine Brunner MD [address] [place] [id number] PCP - General Family Medicine 03/12/16 Milan Benson DO [address] [place] [id number] Gastroenterology 03/12/16 Cassi Marina, SLEEP MEDICINE PHYSICIAN, RECOATING MACHINE OPERATOR [address] [place] [phone] Nurse Practitioner Advanced Practice Nurse 05/05/16
--- OUTSIDE RECORDS SUMMARY | 2024-10-02 10:05 | XMS_ITS | Clinical Summary ---
Author Organization [facility] Address [address] [place] [address] Care Team Providers Care Mentally Impaired Teacher Name Role Phone Unavailable Primary Care Provider Unavailabl e Source Comments [facility] [employer],non-owned Affiliates and Associated Physician Practices is amultiple site organization consisting of ambulatory clinics and hospital sitesin [place], [place], [place] and [place]. This disclosure is being madepursuant to the Care Everywhere program and may not contain all information available regarding this patient. Last updated 18.[facility] [employer] Allergies No known active allergies Social History Tobacco Use Types Packs/Day Years Used Date Smoking Tobacco: Never Assessed Comments Unknown Sex and Gender Information Value Date Recorded Sex Assigned at Not on file Legal Sex Female 10:11 AM CDT Gender Identity Not on file Sexual Orientation Not on file Plan of Treatment Health Maintenance Due Date Last Done Comments COLOGUARD (AGES 45-75) - COL ON CA SCREENING 1965 COLON MONITORING 1965 COLONOSCOPY - COLON CA SCREENING 1965 CT COLONOGRAPHY - COLON CA SCREENING 1965 Colorectal Cancer Screening 1965 FIT - COLON CA SCREENING 1965 FLEX SIG - COLON CA SCREENING 1965 LIPID TESTING 1965 MAMMOGRAM 1965 PAP SMEAR 1965 HIV SCREENING 1980 HEPATITIS C SCREENING 08/11/1983 DTAP/TDAP/TD VACCINES (1 - Tdap) 1984 HEPATITIS B VACCINE (1 of 3 - 19+ 3-dose series) 1984 PNEUMOCOCCAL VACCINE 50+ (1 of 1 - PCV) 08/16/2015 ZOSTER VACCINE (1 of 2) 08/16/2015 COVID-19 VACCINE (2023-2 5 season) 2024 DEPRESSION SCREENING 06/06/2024 INFLUENZA VACCINE (Season Ended) 2025 HIB VACCINE Aged Out No longer eligi ble based on patient's age to complete this topic HPV VACCINE Aged Out No longer eligi ble based on patient's age to complete this topic MENINGOCOCCAL (Group B) VACC INE SHARED DECISION-MAKING Aged Out No longer eligibl e based on patient's age to complete this topic MENINGOCOCCAL GROUPS A/C/Y/W VACCINE Aged Out No longer eligible b ased on patient's age to complete this topic Insurance [employer] SELF PAY NO INSURANCE Member Subscriber Plan / Payer (Ef fective for All Dates) Name:Jevon Arshad Member ID:Not on file Relation to Subscriber:Not on file Name:JEVON ARSHAD Subscriber ID:Not on file Address: [address] [address] Payer ID:Not on file Group ID:Not on file Type:Self Pay Address: [place], [place] AETNA AETNA SELF PAY NO INSURANCE Member Subscriber Plan / Payer (Ef fective for All Dates) Name:Jevon Arshad Member ID:Not on file Relation to Subscriber:Not on file Name:JEVON ARSHAD Subscriber ID:Not on file Address: [address] [address] Payer ID:Not on file Group ID:Not on file Type:Self Pay Address: [place], [place] A[employer] SELF PAY NO INSURANCE Member Subscriber Plan / Payer (Ef fective for All Dates) Name:Jevon Arshad Member ID:Not on file Relation to Subscriber:Not on file Name:JEVON ARSHAD Subscriber ID:Not on file Address: [address] [place] [address] Payer ID:Not on file Group ID:Not on file Type:Self Pay Address: [place], [place]
--- OUTSIDE RECORDS SUMMARY | 2024-10-02 10:05 | XMS_ITS | Clinical Summary ---
Author Organization [facility] Address [address] [place] [id number] Care Team Providers Care Comb Setter Name Role Phone JoanieluciesusanRupa Hoda RDZ Primary Care Provider Social History Tobacco Use Types Packs/Day Years Used Date Smoking Tobacco: Never Assessed Comments Unknown Sex and Gender Information Value Date Recorded Sex Assigned at Not on file Legal Sex Female 6:23 PM CDT Gender Identity Not on file Sexual Orientation Not on file Plan of Treatment Health Maintenance Due Date Last Done Comments Cervical Cancer Screening Pa p Smear (Age 30 to 64) Every 3 Years 1965 Colorectal Cancer Screening Colonoscopy (10 Years) 1965 Annual Physical 1968 Hepatitis C 08/16/1983 DTaP, Tdap and Td Vaccines ( 1 - Tdap) 1984 Cervical Cancer Screening Pa p with HPV Testing (Age 30 to 64) Every 5 Years 08/16/1995 Cervical Cancer Screening with HPV 08/16/1995 Mammogram Screening 2005 Pneumococcal Vaccine: 50+ Ye ars (1 of 1 - PCV) 08/16/2015 Zoster Vaccines (1 of 2) 08/16/2015 COVID-19 Vaccine (2023-2 5 season) 2024 Meningococcal B Vaccine Aged Out No l onger eligible based on patient's age to complete this topic Meningococcal Vaccine Aged Out No marquis jerardo eligible based on patient's age to complete this topic RSV Immunizations Under 20 Months Aged Out No longer eligible based on patient's age to complete this topic Insurance AET[employer] Care Teams Comb Setter Relationship Specialty Start Date End Date Rupa Dawson FNP [address] [place] [id number] PCP - General Nurse Practitioner Family 04/09/24
--- NOTE | 2024-10-02 11:56 | WPDPFTINT ---
PFT Procedure Performed PFT Procedure Performed Spirometry with Pre/Post Bronchodilator Plethysmography (Lung Vol) Diffusing Cap (DLCO) Flow Vol Loop PFT Interpretation This is a pulmonary function test with pre and post-bronchodilator spirometry, plethysmography and diffusing capacity. The test was performed and results interpreted in accordance with the 2019 and 2005 ATS/ERS Task Force guidelines respectively using the Global Lung Function Initiative-2012 reference equations. Patient demonstrated good effort and cooperation. Reproducibility criteria were met. The quality of the pre bronchodilator spirometry maneuver was Grade B and post bronchodilator spirometry maneuver was Grade A. Findings: Spirometry: The contour the inspiratory and expiratory flow tracing are normal. The pre bronchodilator FVC is 3.11 L, 108% predicted. The pre bronchodilator FEV1 is 2.56 L, 112% predicted. The pre bronchodilator FEV1: FVC ratio is 82%. The post bronchodilator FVC is 3.03 L, representing a 2% decrease. The post bronchodilator FEV1 is 2.61 L, representing a 2% increase. The post bronchodilator FEV1: FVC ratio is 86%. Plethysmography: The total lung capacity is 4.27 L, 93% predicted. The functional residual capacity is 1.22 L, 47% predicted. The residual volume is 1.03 L, 57% predicted. Diffusing capacity: The diffusing capacity unadjusted for hemoglobin and carboxyhemoglobin is 21.2, 103% predicted. The diffusing capacity adjusted for alveolar volume is 5.04, 110% predicted. Impression: The spirometry is normal without evidence of an obstructive abnormality. There is no significant improvement after inhaling a single dose of albuterol. The total lung capacity and residual volume are normal with the decreased functional residual capacity. This is an abnormal but nonspecific lung volume pattern. The diffusing capacity is normal. There are no prior studies for comparison
== END 2024-10-02 09:18 | disposition home or self-care (01) ==
PROVIDERS: PCP Nurse Practitioner Family; Visit Provider Nurse Practitioner Family
DX: R06.09 Other forms of dyspnea (principal)
CPT/HCPCS: 94060; 94726; 94729

== ENCOUNTER 2024-10-17 13:11 | Outpatient (CLI) | payer OTHER, SELFPAY ==
--- OUTSIDE RECORDS SUMMARY | 2024-10-17 13:24 | XMS_ITS | Clinical Summary ---
Author Organization [facility] Address [address] [place] [phone] Phone Care Team Providers Care Vp Treasurer Name Role Phone Christine Brunner MD Primary Care Provider + Milan Benson DO Unavailable [phone] Cassi Marina APRN, MEDICAL DEVICE SALES Unavailable Allergies No known active allergies Medications [...] 06/24/2021 Influenza Immunization (#1) 2024 SARS-COV-2 Immunization ( - season) 2024 Respiratory Syncytial Virus (RSV) Immunization [...] Relevant to Health Maintenance Insurance [address] Care Teams Vp Treasurer Relationship Specialty Start Date End Date Christine Brunner MD [address] [place] [id number] PCP - General Family Medicine 03/12/16 Milan Benson DO [address] [place] [id number] Gastroenterology 03/12/16 Cassi Marina, FIELD SPEC, MEDICAL DEVICE SALES [address] [place] [id number] Nurse Practitioner Advanced Practice Nurse 05/05/16
--- OUTSIDE RECORDS SUMMARY | 2024-10-17 13:24 | XMS_ITS | Clinical Summary ---
Author Organization [facility] Address [address] [place] [address] Care Team Providers Care Viticulture Teacher Name Role Phone Unavailable Primary Care Provider Unavailabl e Source Comments [facility] [employer],non-owned Affiliates and Associated Physician Practices is amultiple site organization consisting of ambulatory clinics and hospital sitesin [place], [place], [place] and [place]. This disclosure is being madepursuant to the Care Everywhere program and may not contain all information available regarding this patient. Last updated 18.[facility] [employer] Allergies No known active allergies Social History [...] ARSHAD Subscriber ID:Not on file Address: [address] [address] Payer ID:Not on file Group ID:Not on file Type:Self Pay Address: [place], [place] AET[employer] AETNA SELF PAY NO INSURANCE Member Subscriber Plan / Payer (Ef fective for All Dates) Name:Jevon Arshad Member ID:Not on file Relation to Subscriber:Not on file Name:JEVON ARSHAD Subscriber ID:Not on file Address: [address] [address] Payer ID:Not on file Group ID:Not on file Type:Self Pay Address: [place], [place] [employer] SELF PAY NO INSURANCE Member Subscriber Plan / Payer (Ef fective for All Dates) Name:Jevon Arshad Member ID:Not on file Relation to Subscriber:Not on file Name:JEVON ARSHAD Subscriber ID:Not on file Address: [address] [place] [address] Payer ID:Not on file Group ID:Not on file Type:Self Pay Address: [place], [place]
--- OUTSIDE RECORDS SUMMARY | 2024-10-17 13:24 | XMS_ITS | Clinical Summary ---
Author Organization [facility] Address [address] [place] [address] Care Team Providers Care Research Statistician Name Role Phone JoanieluciesusanRupa Hoda RDZ Primary [...] complete this topic Insurance [employer] Care Teams Research Statistician Relationship Specialty Start Date End Date Rupa Dawson FNP [address] [place] [phone] PCP - General Nurse Practitioner Family 04/09/24
--- NOTE | 2024-10-17 14:45 | NEURO_ITS ---
Impression: # Complains of numbness of right hand. # Moderate right Carpal Tunnel Syndrome. # No ulnar neuropathy. # Normal needle/EMG exam. Nerve Conduction Studies Anti Sensory Summary Table Stim Site NR Peak (ms) P-T Amp (µV) Site1 Site2 Delta-P (ms) Dist (cm) Kanu (m/s) Right Median Anti Sensory (2-3nd Digit) Wrist 6.1 9.7 Wrist 2-3nd Digit 6.1 14.0 23 Wrist 5.7 8.4 Wrist 2-3nd Digit 6.1 14.0 23 Right Radial Anti Sensory (Base 1st Digit) Wrist 2.1 22.6 Wrist Base 1st Digit 2.1 0.0 Right Ulnar Anti Sensory (5th Digit) Wrist 2.3 65.2 Wrist 5th Digit 2.3 14.0 61 Motor Summary Table Stim Site NR Onset (ms) O-P Amp (mV) Site1 Site2 Delta-0 (ms) Dist (cm) Kanu (m/s) Right Median Motor (Abd Poll Brev) Wrist 6.1 2.4 Elbow Wrist 4.6 26.0 57 Elbow 10.7 3.4 Right Ulnar Motor (Abd Dig Minimi) Wrist 2.4 9.6 A Elbow Wrist 4.6 27.0 59 A Elbow 7.0 8.9 B Elbow Wrist 3.2 19.0 59 B Elbow 5.6 6.5 F Wave Studies NR F-Lat (ms) L-R F-Lat (ms) Right Median (Mrkrs) (Abd Poll Brev) 28.99 Right Ulnar (Mrkrs) (Abd Dig Min) 27.11 EMG Side Muscle Nerve Root Ins Act Fibs Amp Dur Recrt Comment Right 1stDorInt Ulnar C8-T1 Nml Nml Nml Nml Nml Right Ext Indicis Radial (Post Int) C7-8 Nml Nml Nml Nml Nml Right Ext Digitorum Radial (Post Int) C7-8 Nml Nml Nml Nml Nml Right BrachioRad Radial C5-6 Nml Nml Nml Nml Nml Right PronatorTeres Median C6-7 Nml Nml Nml Nml Nml Right Abd Poll Brev Median C8-T1 Nml Nml Nml Nml Nml Right ABD Dig Min Ulnar C8-T1 Nml Nml Nml Nml Nml Right FlexPolLong Median (Ant Int) C7-8 Nml Nml Nml Nml Nml Right Abd Poll Long Radial (Post Int) C7-8 Nml Nml Nml Nml Nml MTDD
== END 2024-10-17 13:12 | disposition home or self-care (01) ==
PROVIDERS: PCP Nurse Practitioner Family; Visit Provider Nurse Practitioner Family
DX: G56.01 Carpal tunnel syndrome, right upper limb (principal)
CPT/HCPCS: 95886; 95909

== ENCOUNTER 2024-12-01 07:26 | Outpatient (CLI) | payer OTHER, SELFPAY ==
--- NOTE | ~2024-12-01 | US_ITS ---
Pelvic ultrasound. Clinical History: Postmenopausal bleeding Technique: Realtime transabdominal and transvaginal scanning of the pelvis was performed. Color flow Doppler and Doppler spectral analysis were performed. Findings: The uterus is retroverted, and measures 5.4 x 5.2 x 5.6 cm. The endometrial stripe has a t hickness of 5 mm. Small amount of fluid present in the endometrial cavity. 1.3 cm probable fibroid ve rsus complex nabothian cyst present. The right ovary measures 1.0 x 1.7 x 1.0 cm. No significant right ovarian or adnexal mass is seen. The left ovary measures 1.7 x 1.0 x 1.2 cm. No significant left ovarian or adnexal mass is seen. There is no evidence of free fluid in the cul de sac. Impression: No abnormal endometrial thickening. Minimal fluid present in the endometrial cavity. 1.3 cm fibroid versus possibly complex nabothian cyst. Reviewed, dictated and finalized at location . Impression: No abnormal endometrial thickening. Minimal fluid present in the endometrial ca vity. 1.3 cm fibroid versus possibly complex nabothian cyst.
== END 2024-12-01 07:27 | disposition home or self-care (01) ==
LOC: MICIMG 07:27
PROVIDERS: PCP Nurse Practitioner Family; Visit Provider Nurse Practitioner Family
DX: R93.89 Abnormal findings on diagnostic imaging of other specified body structures (principal); D25.9 Leiomyoma of uterus, unspecified; N88.8 Other specified noninflammatory disorders of cervix uteri; N95.0 Postmenopausal bleeding
CPT/HCPCS: 76830; 76856

== ENCOUNTER 2025-02-08 02:48 | Day surgery (SDC) | payer OTHER, SELFPAY ==
--- NOTE | 2025-01-29 15:57 | SUR.PREOP ---
Report to the Outpatient Waiting Room, entrance under the green pavilion located off [facility], at time ____06___ on date ___02/08/25____. Planned Procedure Time: ____729____.? Time changes happen often and if your time is changed the preop area will call you the afternoon before. - You and your visitor will be asked to self-screen and do not enter if you have any COVID symptoms. Please call surgeon if you need to reschedule. - A mask is optional within the hospital at this time. Patients may have clear liquids (water, carbonated beverages, clear teas, apple juice) until 3 hours prior to surgery with a maximum of 20 ounces. - No food from midnight until time of surgery and no smoking, or chewing tobacco (or any form of nicotine). No chewing gum, candy or mints. - Infants may have breast milk until 4 hours before surgery, infant formula 6 hours prior to surgery. - Children will be allowed to drink immediately following surgery.? If applicable, please bring a bottle or sippy cup to assist with drinking. Juice, water, soda, and popsicles are readily available.? For infants on formula, please bring formula the day of surgery.? Pacifiers are allowed. Take only the following medications with a SIP of water on the morning of surgery: LEXAPRO, BUPROPION, (INSTRUCTED TO BRING ALBUTEROL INHALER, BUT PT DOESN'T CURRENTLY HAVE ONE- USES VERY RARELY) DO NOT STOP ANY OF YOUR OTHER PRESCRIPTION MEDICATIONS PRIOR TO SURGERY EXCEPT THE FOLLOWING Hold all vitamins and supplements for 3 days per anesthesiologist. Medications to discontinue per physician ASPIRIN, MELOXICAM- GOING TO CALL DR OSORIO'S OFFICE & ASK IF SHE NEEDS TO STOP Date to take last dose Please no make-up, nail yi, hairspray, perfume, deodorant, or body powder the day of surgery.? No jewelry (including any body piercings) or valuables the day of surgery, leave them at home.? Please take a shower or bath the night before, or the morning of, surgery with an antibacterial soap.? Wear comfortable, loose fitting clothing.? Children are encouraged to wear pajamas. - Jewelry must be removed prior to entering the operating room.? Rings and piercings that are not removed may be cut off. - The hospital will not accept responsibility for valuables.? - Please leave all valuables, including medications, at home the day of surgery. If you are going home after surgery, a licensed class a truck driver must drive you home.? - NO public transportation without another adult if you receive anesthesia. - We recommend that an adult stay with you for 24 hours following discharge. - We also recommend that you do not drive, make important decision, drink alcoholic beverages, or take any drugs that were not prescribed by your health care provider for at least 24 hours after your discharge time. For Pediatric surgeries, we recommend two adults accompany the child home. Follow any additional instructions given to you from your surgeon. Telephone instructions given to JEVON ARMENTA and asked if any additional questions and then verbalized understanding. Patient advised to call surgeon office or pre surgery nurse liaison [phone] if any additional questions.
[2025-01-29 16:11] VITALS: BMI 56.4
--- OUTSIDE RECORDS SUMMARY | 2025-02-08 02:51 | XMS_ITS | Clinical Summary ---
Author Organization [facility] Address [address] [place] [address] Care Team Providers Care Applications Specialist Name Role Phone Unavailable Primary Care Provider Unavailabl e Source Comments [facility],non-owned Affiliates and Associated Physician Practices is amultiple site organization consisting of ambulatory clinics and hospital sitesin [place], [place], [place] and [place]. This disclosure is being madepursuant to the Care Everywhere program and may not contain all information available regarding this patient. Last updated 18.[facility] Allergies No known active allergies Social History [...] SCREENING 1965 LIPID TESTING 1965 MAMMOGRAM 1965 HIV SCREENING 1980 HEPATITIS C SCREENING 08/11/1983 DTAP/TDAP/TD VACCINES (1 - Tdap) 1984 HEPATITIS B VACCINE (1 of 3 - 19+ 3-dose series) 1984 PAP SMEAR 1986 PNEUMOCOCCAL VACCINE 50+ (1 of 1 - PCV) 08/16/2015 ZOSTER VACCINE (1 of 2) 08/16/2015 COVID-19 VACCINE (2023-2 5 season) 2024 DEPRESSION SCREENING 06/06/2024 INFLUENZA VACCINE (#1) 2025 HIB VACCINE Aged Out No longer [...] ARSHAD Subscriber ID:Not on file Address: [address] [address] Payer ID:Not on file Group ID:Not on file Type:Self Pay Address: [place], [place] AETNA AETNA SELF PAY NO INSURANCE Member Subscriber Plan / Payer (Ef fective for All Dates) Name:Jevon Arshad Member ID:Not on file Relation to Subscriber:Not on file Name:JEVON ARSHAD Subscriber ID:Not on file Address: [address] [address] Payer ID:Not on file Group ID:Not on file Type:Self Pay Address: [place], [place] AET[employer] SELF PAY NO INSURANCE Member Subscriber Plan / Payer (Ef fective for All Dates) Name:Jevon Arshad Member ID:Not on file Relation to Subscriber:Not on file Name:JEVON ARSHAD Subscriber ID:Not on file Address: [address] [place] [address] Payer ID:Not on file Group ID:Not on file Type:Self Pay Address: [place], [place]
--- OUTSIDE RECORDS SUMMARY | 2025-02-08 02:51 | XMS_ITS | Clinical Summary ---
Author Organization [facility] Address [address] [place] [phone] Phone Care Team Providers Care Set Up Mechanic Stamping Machines Name Role Phone Christine Brunner MD Primary Care Provider + Milan Benson DO Unavailable [phone] Cassi Marina APRN, HAND WINDER Unavailable Allergies No known active allergies Medications [...] 1:05 PM CDT Height 157.5 cm (5' 2) 09/23/2016 1:05 PM CDT Body Mass Index 47.54 09/23/2016 1:05 PM CDT Plan of Treatment Health Maintenance Due Date Last Done Comments Hepatitis C Virus (HCV) Screening 1965 TdaP Immunization 1965 Hepatitis B Immunization (1 of 3 - 19+ 3-dose series) 1984 Pap Smear 1986 Cervical Cancer Screening (CCS) 08/16/1995 HPV/Cotest 08/16/1995 Cologuard 2010 Immunochemical Fecal Occult Blood 2010 Pneumococcal Immunization (5 0+ years) (1 of 1 - PCV) 08/16/2015 Zoster Immunization (1 of 2) 08/16/2015 Colonoscopy 06/24/2021 06/24/2016 Colorectal Cancer Screening 06/24/2021 SARS-COV-2 Immunization ( - 2023-25 season) 2024 Influenza Immunization (#1) 2025 Respiratory Syncytial Virus (RSV) Immunization (Adult) (1 - 1-dose 75+ series) 2040 Human Papillomavirus (HPV) Immunization Aged Out No longer eligible b ased on patient's age to complete this topic Meningococcal Immunization (ACWY) Aged Out No longer [...] Most Recently Relevant to Health Maintenance Insurance A [address] Care Teams Set Up Mechanic Stamping Machines Relationship Specialty Start Date End Date Christine Brunner MD [address] [place] [id number] PCP - General Family Medicine 03/12/16 Milan Benson DO [address] [place] [id number] Gastroenterology 03/12/16 Cassi Marina, DIGITAL ASSET MANAGER, HAND WINDER [address] [place] [address] Nurse Practitioner Advanced Practice Nurse 05/05/16
--- OUTSIDE RECORDS SUMMARY | 2025-02-08 02:51 | XMS_ITS | Clinical Summary ---
Author Organization [facility] Address [address] [place] [address] Care Team Providers Care Senior Principal Software Engineer Name Role Phone JoanieluciesusanRupa Hoda RDZ Primary [...] 2) 08/16/2015 COVID-19 Vaccine (2023-2 5 season) 2025 Meningococcal B Vaccine Aged Out No l onger eligible based on patient's age to complete this topic Meningococcal Vaccine Aged Out No marquis jerardo eligible based on patient's age to complete this topic RSV Immunizations Under 20 Months Aged Out No longer eligible based on patient's age to complete this topic Insurance AETNA Care Teams Senior Principal Software Engineer Relationship Specialty Start Date End Date Rupa Dawson FNP [address] [place] [id number] PCP - General Nurse Practitioner Family 04/09/24
[2025-02-08 06:05] VITALS: BP 120/54; PULSE 75; RESP 14; TEMP 36.7; O2SAT 94; BMI 56.5
[2025-02-08] MEDS: LACTATED RINGERS 1,000 ML 30 ML IV CONT (06:25)
[2025-02-08] MEDS: ACETAMINOPHEN 500 MG TABLET 1000 MG PO (06:30)
--- NOTE | 2025-02-08 07:18 | WPDHPUPDATE1 ---
History and Physical Update Update Date/Time: 02/08/25 07:18 History and Physical has been reviewed, including an updated exam of the patient. There are NO changes in the patient's condition. Risks, benefits, and alternatives have been discussed and questions answered. Patient agrees to proceed with procedure.
[2025-02-08 07:25] LABS: Anion Gap 11 mmol/L (4-12); Blood Urea Nitrogen 15 mg/dL (7-17); Calcium 9.0 mg/dL (8.4-10.2); Carbon Dioxide 22 mmol/L (22-30); Chloride 103 mmol/L (98-107); Estimated CRCL calculation 95 ml/min; Estimated Glomerular Filt Rate > 60; Glucose 205 mg/dL (65-110); Sodium 136 mmol/L (137-145)
--- NOTE | 2025-02-08 07:26 | WPDANESEPPF ---
Anes - Initial Pre Proc Eval Procedure: Operation Date: 02/08/25 07:30 Proposed Procedures p Hysteroscopy Dilation and Curettage with Removal of any Endometrial Lesion, If Necessary - Lucio Monte MD Date/Time: 02/08/25 07:26 Surgeon: Lucio Monte MD Pre Op Diagnosis: post menopausal bleeding Patient Data Age: 59 Gender: F Height: 1.57 m Weight: 140.1 kg Last Vital Signs Temp 98.1 F 02/08/25 06:05 Pulse 75 02/08/25 06:05 Resp 14 02/08/25 06:05 BP 120/54 L 02/08/25 06:05 Pulse Ox 94 02/08/25 06:05 O2 Del Method Room Air 02/08/25 06:05 Allergies Allergy/AdvReac Type Severity Reaction Status Date / Time gemfibrozil Allergy Mild feels Verified 02/08/25 06:46 inchoherant NSAIDS (Non-Steroidal AdvReac Mild contraindicated Verified 02/08/25 06:46 Anti-Inflamma r/t severe GERD Home Medications ?Medication ?Instructions ?Recorded ?Confirmed ?Type aspirin 81 mg tablet,delayed 81 mg PO DAILY 11/26/19 02/08/25 History release (Adult Low Dose Aspirin) albuterol sulfate 90 mcg/actuation 2 puff inhalation QID PRN 06/27/21 01/29/25 Rx aerosol inhaler shortness of breath or wheezing #6.7 grams blood-glucose meter (Blood Glucose #1 ea 10/27/21 11/07/24 Rx Monitoring kit) cholecalciferol (vitamin D3) 25 2,000 unit PO DAILY 05/17/22 02/08/25 History mcg (1,000 unit) capsule glucose 4 gram chewable tablet 16 g (4 x 4 gram) PO Q15M PRN 05/17/22 01/29/25 Rx (Dex4 Glucose) hypoglycemia #60 tabs blood sugar diagnostic (Blood #400 ea 03/14/24 11/07/24 Rx Glucose Test strips) icosapent ethyl 1 gram capsule 2 g (2 x 1 gram) PO BID 90 days 04/24/24 01/29/25 Rx (Vascepa) #360 caps glucagon 3 mg/actuation nasal 3 mg intranasal ONCE PRN 05/08/24 01/29/25 Rx spray (Baqsimi) hypoglycemia #1 ea pen needle, diabetic 32 gauge x #400 ea 07/27/24 11/07/24 Rx (BD Ultra-Fine Veronica Pen Needle) dapagliflozin propanediol 10 mg 10 mg PO QAM 90 days #90 tabs 07/31/24 01/29/25 Rx tablet (Farxiga) lisinopril 40 mg tablet See Rx Instructions .Route 08/01/24 01/29/25 Rx .COMPLEX #90 tabs insulin regular hum U-500 conc 500 See Rx Instructions subcut QAM #30 08/06/24 01/29/25 Rx unit/mL(3 mL) subcut pen (Humulin mL R U-500 (Conc) Insulin Kwikpen) mecobalamin (vitamin B12) 5,000 5,000 mcg PO .every other day 08/06/24 02/08/25 History mcg disintegrating tablet meloxicam 15 mg tablet 15 mg PO HS PRN pain 08/06/24 01/29/25 History semaglutide 2 mg/dose (8 mg/3 mL) 2 mg (0.75 mL) subcut WEEKLY #9 mL 08/06/24 01/29/25 Rx subcutaneous pen injector blood-glucose sensor (Dexcom G7 #9 ea 09/06/24 11/07/24 Rx Sensor device) blood-glucose,material handling technician,cont #1 ea 09/06/24 11/07/24 Rx (Dexcom G7 Pressure Vessel Inspector) rosuvastatin 40 mg tablet 40 mg PO DAILY 90 days #90 tabs 09/10/24 01/29/25 Rx bupropion HCl 300 mg 24 hr tablet, 300 mg PO QAM #30 tabs 09/24/24 01/29/25 Rx extended release escitalopram oxalate 20 mg tablet 20 mg PO DAILY #90 tabs 01/07/25 01/29/25 Rx fenofibrate 160 mg tablet See Rx Instructions .Route 01/07/25 02/08/25 Rx .COMPLEX #90 tabs omeprazole 20 mg tablet,delayed 20 mg PO EVERY OTHER DAY PRN 01/29/25 01/29/25 History release heartburn Laboratory Tests 02/08/25 06:21 Sodium 136 L mmol/L (137-145) Potassium Pending Chloride 103 mmol/L (98-107) Carbon Dioxide 22 mmol/L (22-30) Anion Gap 11 mmol/L (4-12) BUN 15 D mg/dL (7-17) Creatinine 0.75 mg/dL (0.7-1.0) Estim Creat Clear Calc 95 ml/min Estimated GFR > 60 (59 - ) Glucose 205 H mg/dL (65-110) Calcium 9.0 mg/dL (8.4-10.2) Patient hx anesthesia problems: none Family hx anesthesia problems: none Results Review: All pre-operative results and documents have been reviewed as part of the pre-operative evaluation. [facility] Past Medical History Medical History Elective Arthritis Diabetes Anxiety Morbid obesity Constipation Schizoaffective disorder, unspecified Restless legs syndrome Paresthesia of both hands Obstructive sleep apnea (adult) (pediatric) Fatty liver Chronic GERD Dysmetabolic syndrome X Diverticulosis of intestine Depressive disorder, not elsewhere classified Chondromalacia of left patella Body mass index (BMI) greater than 40 (10/28/17) Bilateral carpal tunnel syndrome Sleep apnea with use of continuous positive airway pressure (CPAP) Depression Hyperlipidemia Type 2 diabetes mellitus (~2021) Chronic low back pain Strain of left Achilles tendon, sequela (~11/2018) Recurrent sinusitis (~12/2018) GERD without esophagitis Trigger middle finger of left hand Benign essential HTN Vitamin D deficiency Surgical History Surgical History Hx of tubal ligation Hx of myomectomy History of endometrial ablation Hx of dilation and curettage History of carpal tunnel surgery of left wrist Hx of cataract extraction (~2022) right eye Hx of lumbar discectomy (~1992) Family History Family History Mother Diabetes mellitus Family history of chronic obstructive pulmonary disease Depression Father Family history of chronic obstructive pulmonary disease Alcoholism Sibling Alcoholism Heart problem Grandparent Heart problem Other Pancreatic cancer Other Family history of arthritis Family history of emphysema Family history of mental disorder Social History Social History Social History: . Works from home for [employer] in [place]. Caffeine-diet soda Smoking packs per day: 1 Smoking cigarettes per day: 20.0 Years smoked: 12 Smoking pack-years: 12.00 Smoking status: Former smoker Tobacco type: cigarettes Smoking end date: 06/06/92 Alcohol intake: current Drinks per week: 12 Alcohol use details: BEER Substance use: never Substance use type: does not use Last use: high school Lack of Transportation: No Lack of Food: Never True Current Housing: I Have Housing Concerned About Future Housing: No Difficulty Paying Gas/Electric Bills: No Difficulty Paying for Meds: No Currently Unemployed: No Education: Associate Degree Difficulty w/ Childcare or Family Care: No Living arrangements: with family Gender identity (if verbalized by the patient): Female Spiritual care concerns: No Agree to blood products: Yes Anes - Eval Final PreProcedure Day of Procedure 02/08/25 07:26 Patient weight: morbidly obese Lungs: normal air movement Airway: Mallampati scale class III Neurological: alert and oriented Last oral intake: >/= 8 hours ASA classification: IV Emergent: no Anesthetic plan: proceed Anesthesia type and monitoring: general GIVS and LMA and standard monitoring Results Review: All pre-operative results and documents have been reviewed as part of the pre-operative evaluation. BMI 56, HTN, hyperlipidemia, SOPHIE on CPAP (14), DM w fs 189. Informed Consent: The patient's anesthetic plan and its attendant risks and benefits were discussed with the patient/family/POA. Questions were solicited and answers provided to the satisfaction of the patient/family/POA.
[2025-02-08 07:33] LABS: Potassium 4.3 mmol/L (3.4-5.0)
[2025-02-08] MEDS: ceFAZolin 3 GM/D5W 100 ML 100 ML IVPB (07:38)
[2025-02-08] MEDS: LIDOCAINE 1% LOCAL INJ 10 ML VIAL INFILTRATE (07:52)
--- NOTE | 2025-02-08 07:53 | S_PTH ---
PATIENT: Opal Arshad LOC: [facility] U#:[id number] AGE/SX: 59/F ROOM: RE02/08/[address]: Lucio Monte MD : 1965 BED: DIS: 02/08/2025 SPEC #: [id number] RECD: 02/08/25 09:57 STATUS: OLMAN REQ #: [id number] MYNOR: 02/08/25 07:[address]: Lucio Monte DEPT: [facility] Surgical RECD BY: Jeanna Sweeney ENTERED: 02/08/25 09:58 SP TYPE: Surgical OTHR DR: Carloz Rojas MD Tissues: A - Endometrial Curettings Procedures: Hematoxylin and Eosin Stain Gross and Microscopic Level 4
[2025-02-08 08:02] VITALS: BP 115/63; PULSE 91; RESP 18; O2SAT 94
--- NOTE | 2025-02-08 08:02 | W.PM.PROC2 ---
Procedure Note - Detailed Date of Procedure 02/08/25 Pre-op Diagnosis post menopausal bleeding Post-op Diagnosis Same Procedure Performed Diagnostic hysteroscopy and dilation and curettage Surgeon Lucio Monte MD Anesthesia MAC and Local Indications postmenopausal bleeding Findings uterine cavity atrophic and diffuse scarring consistent with prior ablation procedure. Description of Procedure After informed consent was obtained patient was taken to the operating room and adequate IV sedation was administered. Attention was turned to the vagina. Speculum was inserted. Single-tooth tenaculum placed on the anterior lip of the cervix. 10 cc of 1% lidocaine was injected at the cervical vaginal interface at 258 and 10 position. The uterus was sounded to 6 cm. The cervix was dilated to an 6 Farrell dilator. The hysteroscope was inserted into the cavity. The findings were most of cavity obliterated with scar tissue. No lesions visualized. The hysteroscope was removed. A curettage was performed minimal tissue. The single-tooth tenaculum was removed hemostasis was noted at the tenaculum site. Sponge count correct. The patient taken to recovery in stable condition. Estimated Blood Loss 5 Drains No Packing No Pathology Yes ( Scant endometrial curettings) Complications No immediate complications Condition Stable Disposition Same day [facility] Billing Surgery - Charge Forward: Surgery Billing
[2025-02-08 08:30] VITALS: BP 115/55; PULSE 80
[2025-02-08] MEDS: oxyCODONE HCL (*CRX) 5 MG TAB IR PO (08:37)
[2025-02-08 09:00] VITALS: BP 107/71; PULSE 78
== END 2025-02-08 09:11 | disposition home or self-care (01) ==
PROVIDERS: Anesthesiology; PCP Family Medicine; Visit Provider Obstetrics & Gynecology
PROC: 0U5B8ZZ Destruction of Endometrium, Via Natural or Artificial Opening Endoscopic (ICD-10-PCS; CPT 58563; principal; 2025-02-08 07:30)
DX: N95.0 Postmenopausal bleeding (principal); E11.9 Type 2 diabetes mellitus without complications; Z87.891 Personal history of nicotine dependence; E66.01 Morbid (severe) obesity due to excess calories; Z68.43 Body mass index [BMI] 50.0-59.9, adult
CPT/HCPCS: 58558; 36415; 80048; 82948; 88305; A9270; J0690; J2003; J2250; J2405; J2704; J3010; J7120

== ENCOUNTER 2025-02-19 17:05 | Outpatient (CLI) | payer OTHER, SELFPAY ==
--- OUTSIDE RECORDS SUMMARY | 2025-02-19 17:09 | XMS_ITS | Clinical Summary ---
Author Organization [facility] Address [address] [place] [phone] Phone Care Team Providers Care Building Construction Ironworker Name Role Phone Christine Brunner MD Primary Care Provider + Milan Benson DO Unavailable [phone] Cassi Marina APRN, TAPROOM ATTENDANT Unavailable Allergies No known active allergies Medications [...] Recently Relevant to Health Maintenance Insurance A [address] Care Teams Building Construction Ironworker Relationship Specialty Start Date End Date Christine Brunner MD [address] [place] [id number] PCP - General Family Medicine 03/12/16 Milan Benson DO [address] [place] [id number] Gastroenterology 03/12/16 Cassi Marina, SLOT FLOOR PERSON, TAPROOM ATTENDANT [address] [place] [id number] Nurse Practitioner Advanced Practice Nurse 05/05/16
--- OUTSIDE RECORDS SUMMARY | 2025-02-19 17:09 | XMS_ITS | Clinical Summary ---
Author Organization [facility] Address [address] [place] [address] Care Team Providers Care Medical Office Scheduler Name Role Phone JoanieluciesusanRupa Hoda RDZ Primary [...] complete this topic Insurance AETNA Care Teams Medical Office Scheduler Relationship Specialty Start Date End Date Rupa Dawson FNP [address] [place] [address] PCP - General Nurse Practitioner Family 04/09/24
[2025-02-19 17:54] LABS: Influenza A QL RT-PCR Negative (Negative); Influenza B QL RT-PCR Negative (Negative); RSV RNA, RT-PCR Negative (Negative); SARS-CoV-2 RNA PCR Negative (Negative)
== END 2025-02-19 17:06 | disposition home or self-care (01) ==
LOC: ANHLAB 17:07
PROVIDERS: PCP Family Medicine; Visit Provider Nurse Practitioner Family
DX: R05.9 Cough, unspecified (principal); Z20.822 Contact with and (suspected) exposure to COVID-19
CPT/HCPCS: 87637

== ENCOUNTER 2025-03-13 00:23 | Day surgery (SDC) | payer OTHER, SELFPAY ==
--- NOTE | 2025-03-11 10:58 | PC.NURSE ---
Addendum entered by Robert Delaney RN 03/11/25 11:26: I told patient to stop Clear liquids at 415am. Also gave patient Preop number [id number] to call if has any blood sugar issues. Original Note: [facility] has started construction of its new state of the art ER which will open Spring 2026. With this, we anticipate parking may be a challenge for some our surgical patients and families. Parking spaces are limited but are available for all Surgical, obstetrics, and ER patients sharing this lot. If you arrive and find you are having a hard time finding a parking space, please note that we understand the challenges, please drive around the hospital and park near Hospital Entrance 1. When you enter this entrance, you can ask a volunteer to direct or take you back to the surgical waiting area to check in. We appreciate everyone?s understanding of these expected challenges while we build for your future. Report to the Outpatient Waiting Room, entrance under the green pavilion located off [address], at time _1015_ on date _[id number]_. Planned Procedure Time: _1215_.? Time changes happen often and if your time is changed the preop area will call you the afternoon before. - You and your visitor will be asked to self-screen and do not enter if you have any COVID symptoms. Please call surgeon if you need to reschedule. - A mask is optional within the hospital at this time. Patients may have clear liquids (water, carbonated beverages, clear teas, apple juice) until 3 hours prior to surgery with a maximum of 20 ounces. - No food from midnight until time of surgery and no smoking, or chewing tobacco (or any form of nicotine). No chewing gum, candy or mints. Take only the following medications with a SIP of water on the morning of surgery: __Buspirone, Escitalopram and 1/2 dose of morning insulin.___ DO NOT STOP ANY OF YOUR OTHER PRESCRIPTION MEDICATIONS PRIOR TO SURGERY EXCEPT THE FOLLOWING Hold all vitamins and supplements for 3 days per anesthesiologist. Medications to discontinue per physician Date to take last dose Please no make-up, nail tamazight, hairspray, perfume, deodorant, or body powder the day of surgery.? No jewelry (including any body piercings) or valuables the day of surgery, leave them at home.? Please take a shower or bath the night before, or the morning of, surgery with an antibacterial soap.? Wear comfortable, loose fitting clothing.? - Jewelry must be removed prior to entering the operating room.? Rings and piercings that are not removed may be cut off. - The hospital will not accept responsibility for valuables.? - Please leave all valuables, including medications, at home the day of surgery. If you are going home after surgery, a licensed power screwdriver operator must drive you home.? - NO public transportation without another adult if you receive anesthesia. - We recommend that an adult stay with you for 24 hours following discharge. - We also recommend that you do not drive, make important decision, drink alcoholic beverages, or take any drugs that were not prescribed by your health care provider for at least 24 hours after your discharge time. Follow any additional instructions given to you from your surgeon. Telephone instructions given to __Opal___and asked if any additional questions and then verbalized understanding. Patient advised to call surgeon office or pre surgery nurse liaison [phone] if any additional questions.
[2025-03-11 11:10] VITALS: BMI 56.5
--- OUTSIDE RECORDS SUMMARY | 2025-03-13 00:26 | XMS_ITS | Clinical Summary ---
Author Organization [facility] Address [address] [place] [address] Care Team Providers Care Communication Analyst Name Role Phone Joanieflavializa Rupa Hoda RDZ Primary Care Provider Social History [...] 08/16/2015 COVID-19 Vaccine (2023-2 5 season) 2025 Influenza Adult (#1) 2025 Meningococcal B Vaccine Aged Out No l onger eligible based on patient's age to complete this topic Meningococcal Vaccine Aged Out No marquis jerardo eligible based on patient's age to complete this topic RSV Immunizations Under 20 Months Aged Out No longer eligible based on patient's age to complete this topic Insurance AETNA Care Teams Communication Analyst Relationship Specialty Start Date End Date Rupa Dawson FNP [address] [place] [phone] PCP - General Nurse Practitioner Family 04/09/24
--- OUTSIDE RECORDS SUMMARY | 2025-03-13 00:26 | XMS_ITS | Clinical Summary ---
Author Organization [facility] Address [address] [place] [phone] Phone Care Team Providers Care Bituminous Paving Machine Operator Name Role Phone Christine Brunner MD Primary Care Provider + Milan Benson DO Unavailable [phone] Cassi Marina APRN, BOARDING MACHINE OPERATOR Unavailable Allergies No known active [...] Colorectal Cancer Screening 06/24/2021 Influenza Immunization (#1) 2025 SARS-COV-2 Immunization ( - 2023- season) 2025 Respiratory Syncytial Virus (RSV) Immunization (Adult) [...] Recently Relevant to Health Maintenance Insurance A [address] Care Teams Bituminous Paving Machine Operator Relationship Specialty Start Date End Date Christine Brunner MD [address] [place] [id number] PCP - General Family Medicine 03/12/16 Milan Benson DO [address] [place] [id number] Gastroenterology 03/12/16 Cassi Marina, WASH OIL COOLER OPERATOR, BOARDING MACHINE OPERATOR [address] [place] [phone] Nurse Practitioner Advanced Practice Nurse 05/05/16
--- NOTE | 2025-03-13 07:08 | WPDHPUPDATE1 ---
History and Physical Update Update Date/Time: 03/13/25 07:08 Patient seen and examined in pre-operative holding area. No interval change in medical history or symptoms. Patient recalls previous discussion of benefits and alternatives to procedure. Continues to desire to proceed with right endoscopic possible open carpal tunnel release. Reviewed procedure, post-op expectations and risks including but not limited to bleeding, infection, injury to tendon/nerve/vessel, decreased hand function, stiffness, RSD, no change or worsening of symptoms. I discussed the possible use of assistants and their participation in the case. Patient stated understanding and signed the consent form wishing to proceed.
--- NOTE | 2025-03-13 07:08 | W.PM.PROC2 ---
Procedure Note - Detailed Date of Procedure 03/13/25 Pre-op Diagnosis Right Carpal Tunnel synd Post-op Diagnosis Same Procedure Performed right ectr Surgeon Leopoldo Morales MD [employer] Engineer padmaja rocha pa-c Anesthesia MAC Description of Procedure INFORMED CONSENT: The patient was seen and examined and marked in the pre-op area.? The patient signed the consent form. PROCEDURE IN DETAIL:The patient taken back to OR on the stretcher in supine position. Time out performed with anesthesia, surgeon and staff agreeing on patient's name site and surgery to be performed SCDs were placed on the lower extremities and inflated. A tourniquet was placed on {right} upper extremity and antibiotics given IV After anesthesia administered sedation I injected {5}cc 1%lido with epi and 0.5% marcaine plain at the operative site The?{right upper extremity}?was prepped and draped in sterile fashion the??{right upper extremity} was? exsanguinated with Esmarch bandage and tourniquet inflated to 250mmHg I made a transverse incision in the {right} volar distal wrist crease through skin and dermis with 15 blade scalpel.? Littler scissors spread down to antebrachial fascia. A small incision was made in antebrachial fascia allowing access to Carpal tunnel. I proceeded with sequential dilation staying in line with the ring finger and hugging the hook of the hamate.? I then used the synovial elevator to free any adhesions from the underside of the transverse carpal ligament. Next I was able to insert the Microaire endoscopic carpal tunnel device with direct visualization of the transverse fibers on the monitor and proceeded with complete segmental retrograde release of the ligament in its entirety.? I irrigated with normal saline and closed with 4-0 monocryl for dermis and subcuticular closure. A dressing of Dermabond, 4x4, nicola, and a volar splint was applied for patient safety, security, and comfort and secured with an bridgette bandage after the tourniquet was let down noting the hand was warm and well perfused. The patient was then awaken from anesthesia and transferred to the recovery room in stable condition.? Complications - none EBL- 0cc Disposition - home in stable condition padmaja rocha pa-c was essential for positioning, retraction, closure and dressing placement [facility] Billing Surgery - Charge Forward: Surgery Billing ([id number] same for padmaja adding )
[2025-03-13 11:24] VITALS: BP 125/69; PULSE 92; TEMP 37.2; O2SAT 95; BMI 55.4
[2025-03-13] MEDS: ACETAMINOPHEN 500 MG TABLET 1000 MG PO (11:27)
[2025-03-13] MEDS: LACTATED RINGERS 1,000 ML 30 ML IV CONT (11:27)
--- NOTE | 2025-03-13 12:10 | WPDANESEPPF ---
Anes - Initial Pre Proc Eval Procedure: Operation Date: 03/13/25 12:15 Proposed Procedures p Right Endoscopic Carpal Tunnel Release, Possible Open - Leopoldo Morales MD Date/Time: 03/13/25 12:10 Surgeon: Leopoldo Morales MD Pre Op Diagnosis: Right Carpal Tunnel synd Patient Data Age: 59 Gender: F Height: 1.57 m Weight: 137.4 kg Last Vital Signs Temp 37.2 C 03/13/25 11:24 Pulse 92 03/13/25 11:24 BP 125/69 03/13/25 11:24 Pulse Ox 95 03/13/25 11:24 O2 Del Method Room Air 03/13/25 11:24 Allergies Allergy/AdvReac Type Severity Reaction Status Date / Time gemfibrozil Allergy Mild feels Verified 03/11/25 16:29 inchoherant NSAIDS (Non-Steroidal AdvReac Mild contraindicated Verified 03/11/25 16:29 Anti-Inflamma r/t severe GERD Home Medications ?Medication ?Instructions ?Recorded ?Confirmed ?Type aspirin 81 mg tablet,delayed 81 mg PO DAILY 11/26/19 03/11/25 History release (Adult Low Dose Aspirin) albuterol sulfate 90 mcg/actuation 2 puff inhalation QID PRN 06/27/21 03/11/25 Rx aerosol inhaler shortness of breath or wheezing #6.7 grams blood-glucose meter (Blood Glucose #1 ea 10/27/21 03/11/25 Rx Monitoring kit) cholecalciferol (vitamin D3) 25 2,000 unit PO DAILY 05/17/22 03/11/25 History mcg (1,000 unit) capsule icosapent ethyl 1 gram capsule 2 g (2 x 1 gram) PO BID 90 days 04/24/24 03/11/25 Rx (Vascepa) #360 caps pen needle, diabetic 32 gauge x #400 ea 07/27/24 03/11/25 Rx 5/32 (BD Ultra-Fine Veronica Pen Needle) dapagliflozin propanediol 10 mg 10 mg PO QAM 90 days #90 tabs 07/31/24 03/11/25 Rx tablet (Farxiga) insulin regular hum U-500 conc 500 See Rx Instructions subcut QAM #30 08/06/24 03/11/25 Rx unit/mL(3 mL) subcut pen (Humulin mL R U-500 (Conc) Insulin Kwikpen) mecobalamin (vitamin B12) 5,000 5,000 mcg PO .every other day 08/06/24 03/11/25 History mcg disintegrating tablet meloxicam 15 mg tablet 15 mg PO HS PRN pain 08/06/24 03/11/25 History blood-glucose sensor (Dexcom G7 #9 ea 09/06/24 03/11/25 Rx Sensor device) blood-glucose,senior vice president and chief information officer,cont #1 ea 09/06/24 03/11/25 Rx (Dexcom G7 Material Hauler) rosuvastatin 40 mg tablet 40 mg PO DAILY 90 days #90 tabs 09/10/24 03/11/25 Rx bupropion HCl 300 mg 24 hr tablet, 300 mg PO QAM #30 tabs 09/24/24 03/11/25 Rx extended release escitalopram oxalate 20 mg tablet 20 mg PO DAILY #90 tabs 01/07/25 03/11/25 Rx fenofibrate 160 mg tablet See Rx Instructions .Route 01/07/25 03/11/25 Rx .COMPLEX #90 tabs omeprazole 20 mg tablet,delayed 20 mg PO EVERY OTHER DAY PRN 01/29/25 03/11/25 History release heartburn lisinopril 40 mg tablet See Rx Instructions .Route 02/18/25 03/11/25 Rx .COMPLEX #90 tabs semaglutide 2 mg/dose (8 mg/3 mL) 2 mg (0.75 mL) subcut WEEKLY #9 mL 02/18/25 03/11/25 Rx subcutaneous pen injector blood sugar diagnostic (Blood #400 ea 02/25/25 03/11/25 Rx Glucose Test strips) glucagon 3 mg/actuation nasal 3 mg intranasal ONCE PRN 03/11/25 Rx spray (Baqsimi) hypoglycemia #1 ea tramadol 50 mg tablet 50 mg PO Q6H PRN pain #12 tabs 03/13/25 Rx Laboratory Tests 03/13/25 11:17 POC Capillary Glucose 164 H mg/dl (65-105) Patient hx anesthesia problems: none Family hx anesthesia problems: none Results Review: All pre-operative results and documents have been reviewed as part of the pre-operative evaluation. [facility] Past Medical History Medical History (Updated 03/11/25 @ 16:48 by Patti Fuentes PA-C) Elective 02/2025 Arthritis Diabetes Anxiety Morbid obesity Constipation Schizoaffective disorder, unspecified Restless legs syndrome Paresthesia of both hands Obstructive sleep apnea (adult) (pediatric) Fatty liver Chronic GERD Dysmetabolic syndrome X Diverticulosis of intestine Depressive disorder, not elsewhere classified Chondromalacia of left patella Body mass index (BMI) greater than 40 (10/28/17) Bilateral carpal tunnel syndrome Sleep apnea with use of continuous positive airway pressure (CPAP) Depression Hyperlipidemia Type 2 diabetes mellitus (~2021) Chronic low back pain Strain of left Achilles tendon, sequela (~11/2018) Recurrent sinusitis (~12/2018) GERD without esophagitis Trigger middle finger of left hand Benign essential HTN Vitamin D deficiency Surgical History Surgical History Hx of tubal ligation Hx of myomectomy History of endometrial ablation Hx of dilation and curettage History of carpal tunnel surgery of left wrist Hx of cataract extraction (~2022) right eye Hx of lumbar discectomy (~1992) Family History Family History Mother Diabetes mellitus Family history of chronic obstructive pulmonary disease Depression Father Family history of chronic obstructive pulmonary disease Alcoholism Sibling Alcoholism Heart problem Grandparent Heart problem Other Pancreatic cancer Other Family history of arthritis Family history of emphysema Family history of mental disorder Social History Social History Social History: . Works from home for [email or web address] in [employer]. Caffeine-diet soda Smoking packs per day: 1 Smoking cigarettes per day: 20.0 Years smoked: 12 Smoking pack-years: 12.00 Smoking status: Former smoker Tobacco type: cigarettes Smoking end date: 06/06/92 Alcohol intake: current Drinks per week: 12 Alcohol use details: BEER Substance use: never Substance use type: does not use Last use: high school Lack of Transportation: No Lack of Food: Never True Current Housing: I Have Housing Concerned About Future Housing: No Difficulty Paying Gas/Electric Bills: No Difficulty Paying for Meds: No Currently Unemployed: No Education: Associate Degree Difficulty w/ Childcare or Family Care: No Living arrangements: with family Gender identity (if verbalized by the patient): Female Spiritual care concerns: No Agree to blood products: Yes Anes - Eval Final PreProcedure Day of Procedure 03/13/25 12:10 Patient weight: super morbidly obese Heart: regular rate and rhythm Lungs: clear to auscultation Airway: Mallampati scale class III Neurological: alert and oriented Last oral intake: >/= 8 hours ASA classification: III Emergent: no Anesthetic plan: proceed Anesthesia type and monitoring: general GIVS and standard monitoring Results Review: All pre-operative results and documents have been reviewed as part of the pre-operative evaluation. Informed Consent: The patient's anesthetic plan and its attendant risks and benefits were discussed with the patient/family/POA. Questions were solicited and answers provided to the satisfaction of the patient/family/POA.
[2025-03-13] MEDS: ceFAZolin 3 GM/D5W 100 ML 100 ML IVPB (12:20)
[2025-03-13] MEDS: LIDO 1%/EPINEPHRINE 1:100,000 50 ML VIAL 7.5 ML INFILTRATE (12:32)
[2025-03-13] MEDS: BUPivacaine HCL 0.5% 10 ML AMP INFILTRATE (12:33)
[2025-03-13 12:40] VITALS: BP 133/59; PULSE 96; RESP 16; O2SAT 94
[2025-03-13 13:10] VITALS: BP 131/64; PULSE 84; RESP 16; O2SAT 95
[2025-03-13 13:35] VITALS: BP 144/84; PULSE 84; RESP 16
== END 2025-03-13 13:45 | disposition home or self-care (01) ==
PROVIDERS: PCP Family Medicine; Visit Provider Plastic Surgery
PROC: 01N54ZZ Release Median Nerve, Percutaneous Endoscopic Approach (ICD-10-PCS; CPT 29848; principal; 2025-03-13 12:15)
DX: G56.01 Carpal tunnel syndrome, right upper limb (principal); E78.5 Hyperlipidemia, unspecified; I10 Essential (primary) hypertension; E55.9 Vitamin D deficiency, unspecified; E11.9 Type 2 diabetes mellitus without complications; G25.81 Restless legs syndrome; G47.33 Obstructive sleep apnea (adult) (pediatric); K21.9 Gastro-esophageal reflux disease without esophagitis; E88.810 Metabolic syndrome; F41.9 Anxiety disorder, unspecified; F32.A Depression, unspecified; F25.9 Schizoaffective disorder, unspecified; M19.90 Unspecified osteoarthritis, unspecified site; G89.29 Other chronic pain; M54.50 Low back pain, unspecified; E66.01 Morbid (severe) obesity due to excess calories; Z68.43 Body mass index [BMI] 50.0-59.9, adult; Z79.82 Long term (current) use of aspirin; Z79.51 Long term (current) use of inhaled steroids; Z79.84 Long term (current) use of oral hypoglycemic drugs; Z79.4 Long term (current) use of insulin; Z79.85 Long-term (current) use of injectable non-insulin antidiabetic drugs; Z79.891 Long term (current) use of opiate analgesic; Z98.890 Other specified postprocedural states; Z98.51 Tubal ligation status; Z98.891 History of uterine scar from previous surgery; Z98.1 Arthrodesis status; Z87.891 Personal history of nicotine dependence; Z87.19 Personal history of other diseases of the digestive system; Z80.0 Family history of malignant neoplasm of digestive organs; Z82.49 Family history of ischemic heart disease and other diseases of the circulatory system
CPT/HCPCS: 29848; 82948; A9270; J0690; J2004; J2250; J2704; J7120